=== PATIENT | male | born 1960 | race African-American/Black ===

== ENCOUNTER 2018-05-27 12:26 | Inpatient (IN) ==
[2018-05-27 14:35] LABS: Basophils % 0.4 % (0.0-0.8); Eosinophils # 0.2 10*3/uL (0.0-0.87); Hematocrit 42.6 VOL% (42.0-52.0); Immature Granulocytes % 0.3 %; Immature Granulocytes Absolute 0.02 #; Lymphocytes # 1.9 10*3/uL (1.4-4.0); Lymphocytes % 24.8 % (21.2-54.2); Mean Corpuscular HGB Conc 32.9 GM/DL (32-36); Mean Corpuscular Hemoglobin 32 PG (27-34); Mean Corpuscular Volume 96.4 FL (87-102); Mean Platelet Volume 9.2 FL (9.6-12.0); Monocytes # 0.7 10*3/uL (0.11-0.8); Monocytes % 8.9 % (1.7-12.7); Neutrophils # 4.9 10*3/uL (1.4-7.4); Neutrophils % 63.6 % (38.7-73.9); Platelet Count 295 T/CUMM (130-400); Red Blood Count 4.42 MC/CUMM (3.8-5.5); Red Cell Distribution Width 13.9 % (9.3-17.3); White Blood Count 7.6 T/CUMM (4-12)
[2018-05-27 14:40] LABS: Apearance,Urine CLEAR (Clear); Bilirubin,Urine Negative (Negative); Blood, Urine Moderate mg/dL (Negative); Glucose,Urine (UA) Negative (Negative); Ketones,Urine Negative (Negative); Mucus,Urine Occasional /LPF (Occasional); Nitrite,Urine Negative (Negative); Protein,Urine 30 MG/DL; RBC,Urine 9 /HPF (0-4); Squamous Epithelial Cell,Urine Occasional /HPF (0-10); Urine Color Yellow (Yellow); Urine Specific Gravity 1.025 (1.001-1.035); WBC,Urine 1 /HPF (0-6)
[2018-05-27 14:45] LABS: INR 0.9; PT Patient Result 9.8 SECS
[2018-05-27 14:47] LABS: Barbiturates Screen,Urine Negative (Negative); Benzodiazepines Screen,Urine Negative (Negative); Cannabinoid Screen,Urine Positive (Negative); Opiate Screen,Urine Negative (Negative); Phencyclidine Screen,Urine Negative (Negative)
[2018-05-27 15:03] LABS: Alanine Aminotransferase 21 U/L (16-61); Albumin 3.8 G/DL (3.4-5.0); Alkaline Phosphatase 62 U/L (45-117); Aspartate Amino Transferase 33 U/L (0-37); Bilirubin,Total < 0.39 MG/DL (0.2-1.0); Blood Urea Nitrogen 13 MG/DL (7-18); Calcium 9.6 MG/DL (8.5-10.1); Glucose 91 MG/DL (74-106); Osmolality,Calculated 280.3 MOS/KG (273-304); Potassium 4.2 MMOL/L (3.5-5.1); Sodium 141 MMOL/L (136-145); Total Protein 8.1 G/DL (6.4-8.3)
[2018-05-27] MEDS ORDERED: LABETALOL 20 MG/4 ML SYRINGE IV PRN (16:09)
[2018-05-27] MEDS ORDERED: NICOTINE 21 MG/24 HR PATCH TRANSDERM PRN (16:30)
[2018-05-27] MEDS ORDERED: ONDANSETRON 4 MG/2 ML VIAL IV PRN (16:30)
[2018-05-27 17:09] LABS: Risk Ratio 2.06
[2018-05-27] MEDS ORDERED: INFLUENZA VIRUS VACCINE 0.5 ML SYRINGE IM ONE (18:55)
[2018-05-27] MEDS ORDERED: PNEUMOCOCCAL VACCINE (13 VALENT) 0.5 ML SYRINGE IM ONE (18:55)
[2018-05-27] MEDS: MULTIVITAMIN (CENTRUM) TABLET PO SCH (18:57)
[2018-05-27] MEDS: THIAMINE 100 MG TABLET PO SCH (18:57)
[2018-05-27] MEDS: SODIUM CHLORIDE 0.9% 1,000 ML IV SCH (18:57)
[2018-05-27] MEDS: FOLIC ACID 1 MG TABLET PO SCH (18:57)
[2018-05-27] MEDS: ASPIRIN EC 81 MG TABLET PO SCH (18:58)
[2018-05-27] MEDS: chlordiazePOXIDE 25 MG CAPSULE PO SCH (20:26)
[2018-05-28 01:16] LABS: Basophils % 0.6 % (0.0-0.8); Eosinophils # 0.2 10*3/uL (0.0-0.87); Eosinophils % 2.7 % (0.00-10.9); Hematocrit 38.3 VOL% (42.0-52.0); Hemoglobin 12.1 GM/DL (14.0-18.0); Immature Granulocytes % 0.4 %; Immature Granulocytes Absolute 0.03 #; Lymphocytes # 2.5 10*3/uL (1.4-4.0); Lymphocytes % 35.4 % (21.2-54.2); Mean Corpuscular HGB Conc 31.6 GM/DL (32-36); Mean Corpuscular Hemoglobin 31 PG (27-34); Mean Platelet Volume 9.7 FL (9.6-12.0); Monocytes # 0.6 10*3/uL (0.11-0.8); Monocytes % 8.1 % (1.7-12.7); Neutrophils # 3.8 10*3/uL (1.4-7.4); Neutrophils % 52.8 % (38.7-73.9); Platelet Count 302 T/CUMM (130-400); Red Blood Count 3.95 MC/CUMM (3.8-5.5); Red Cell Distribution Width 13.8 % (9.3-17.3); White Blood Count 7.1 T/CUMM (4-12)
[2018-05-28 01:36] LABS: Calcium 9.2 MG/DL (8.5-10.1); Osmolality,Calculated 286.8 MOS/KG (273-304); Potassium 3.9 MMOL/L (3.5-5.1)
[2018-05-28] MEDS: chlordiazePOXIDE 25 MG CAPSULE PO SCH ×3 (08:38→22:19)
[2018-05-28] MEDS: ASPIRIN EC 81 MG TABLET PO SCH (08:38)
[2018-05-28] MEDS: FOLIC ACID 1 MG TABLET PO SCH (08:38)
[2018-05-28] MEDS: CLOPIDOGREL 75 MG TABLET PO SCH (08:38)
[2018-05-28] MEDS: MULTIVITAMIN (CENTRUM) TABLET PO SCH (08:38)
[2018-05-28] MEDS: PANTOPRAZOLE 40 MG TABLET PO SCH (08:38)
[2018-05-28] MEDS: THIAMINE 100 MG TABLET PO SCH (16:35)
[2018-05-28] MEDS: SODIUM CHLORIDE 0.9% 1,000 ML IV SCH (16:41)
[2018-05-28] MEDS: ACETAMINOPHEN 325 MG TABLET PO PRN (22:20)
[2018-05-29 02:53] LABS: Basophils % 0.2 % (0.0-0.8); Eosinophils # 0.2 10*3/uL (0.0-0.87); Hematocrit 34.8 VOL% (42.0-52.0); Hemoglobin 11.2 GM/DL (14.0-18.0); Immature Granulocytes % 0.5 %; Immature Granulocytes Absolute 0.04 #; Lymphocytes # 1.8 10*3/uL (1.4-4.0); Lymphocytes % 21.7 % (21.2-54.2); Mean Corpuscular HGB Conc 32.2 GM/DL (32-36); Mean Corpuscular Hemoglobin 31 PG (27-34); Mean Corpuscular Volume 95.3 FL (87-102); Monocytes # 0.6 10*3/uL (0.11-0.8); Monocytes % 7.6 % (1.7-12.7); Neutrophils # 5.7 10*3/uL (1.4-7.4); Platelet Count 292 T/CUMM (130-400); Red Blood Count 3.65 MC/CUMM (3.8-5.5); Red Cell Distribution Width 13.6 % (9.3-17.3); White Blood Count 8.4 T/CUMM (4-12)
[2018-05-29 03:16] LABS: Calcium 8.6 MG/DL (8.5-10.1); Osmolality,Calculated 279.3 MOS/KG (273-304); Potassium 3.5 MMOL/L (3.5-5.1)
[2018-05-29] MEDS: PANTOPRAZOLE 40 MG TABLET PO SCH (08:04)
[2018-05-29] MEDS: MULTIVITAMIN (CENTRUM) TABLET PO SCH (08:04)
[2018-05-29] MEDS: CLOPIDOGREL 75 MG TABLET PO SCH (08:05)
[2018-05-29] MEDS: ASPIRIN EC 81 MG TABLET PO SCH (08:05)
[2018-05-29] MEDS: THIAMINE 100 MG TABLET PO SCH (08:05)
[2018-05-29] MEDS: FOLIC ACID 1 MG TABLET PO SCH (08:05)
[2018-05-29] MEDS: chlordiazePOXIDE 25 MG CAPSULE PO SCH (08:05)
[2018-05-29] MEDS: ACETAMINOPHEN 325 MG TABLET PO PRN (08:05)
[2018-05-29] MEDS ORDERED: chlordiazePOXIDE 10 MG CAPSULE PO SCH (12:01)
[2018-05-29] MEDS ORDERED: TRIAMTERENE/HCTZ 37.5-25 MG CAPSULE PO SCH (12:30)
[2018-05-29] MEDS ORDERED: amLODIPine 5 MG TABLET PO SCH (12:30)
[2018-05-29] MEDS ORDERED: LORazepam 2 MG/1 ML VIAL IV PRN ×2 (15:37→18:10)
[2018-05-29] MEDS ORDERED: chlordiazePOXIDE 25 MG CAPSULE PO PRN (15:38)
[2018-05-29] MEDS ORDERED: DEXAMETHASONE 10 MG/1 ML VIAL IV ONE (16:40)
[2018-05-29] MEDS ORDERED: ATORVASTATIN 20 MG TABLET PO SCH (21:00)
[2018-05-29] MEDS ORDERED: chlordiazePOXIDE 25 MG CAPSULE PO SCH (21:00)
[2018-05-29 21:05] VITALS: BP 143/90
[2018-05-30] MEDS ORDERED: DEXAMETHASONE 10 MG/1 ML VIAL IV SCH (05:00)
== END 2018-05-29 20:51 | disposition hospice, home (50) | DRG 54 ==
LOC: N.ED 12:26 → N.4E 17:03 → N.CC 05-29 19:46
PROVIDERS: ADMIT Internal Medicine; ATTEND Internal Medicine